=== PATIENT | male | born 1955 | race African-American/Black ===

== ENCOUNTER 2023-04-12 11:07 | Emergency (ER) | payer OTHER ==
[2023-04-12] MEDS ORDERED: NITROGLYCERIN/D5W 50 MG/250 ML BTL IV ONE (11:33)
[2023-04-12] MEDS ORDERED: FUROSEMIDE 100 MG/10 ML VIAL IV ONE (11:33)
[2023-04-12 11:37] LABS: Absolute Lymphocytes (CBC) 1.8 K/uL (0.7-4.9); Hematocrit 33.5 % (39.6-49.0); Lymphocytes % 16.7 % (15.3-44.8); MCV 88.8 fL (80-100); MPV 7.2 fL (7.6-11.3); Platelets 404 thou/uL (152-406); RBC Red Blood Cell Count 3.77 M/uL (4.33-5.43)
[2023-04-12 11:43] LABS: Protime INR 1.13
[2023-04-12 11:53] LABS: Arterial Blood Carboxyhemoglob 1.2 % (0-1.5); Blood Gas Oxyhemoglobin 48.2 % (94-97); Blood O2 Saturation 49.6 % (92-98.5)
[2023-04-12 11:57] LABS: Specific Gravity > 1.030 (1.005-1.030); Transitional Epithelial <5 /HPF (None Seen); Urine Bacteria <20 /HPF (<20); Urine Bilirubin NEGATIVE (Negative); Urine Blood 2+ (Negative); Urine Clarity Turbid (Clear); Urine Color Yellow (Yellow); Urine Glucose 4+ (Negative); Urine Mucus Slight /HPF (None Seen); Urine Protein 3+ (Negative); Urine RBC >50 /HPF (None Seen); Urine Urobilinogen 1+ (Normal)
[2023-04-12 11:57] LABS: Albumin 2.6 g/dL (3.4-5.0); Bilirubin Direct 0.1 mg/dL (0-0.2); Bilirubin Indirect, Calculated 0.3 mg/dL (0.2-0.8); Bilirubin Total 0.4 mg/dL (0.2-1.0); Potassium 3.3 mEq/L (3.5-5.1); Protein, Total 8.8 g/dL (6.4-8.2); Troponin High Sensitivity 1869.6 pg/mL (<58.9)
--- NOTE | 2023-04-12 12:21 | RAD REPORT ---
EXAM DESCRIPTION: Toshia Single View04/12/2023 11:54 am CLINICAL HISTORY: DYSPNEA COMPARISON: No comparisons TECHNIQUE: Portable AP view of the chest. FINDINGS: Pronounced interstitial prominence and central hazy opacities. Suspected small bilateral p leural effusions. No pneumothorax. The cardiomediastinal contours are unremarkable. IMPRESSION: Findings suggestive of central pulmonary edema as above.
--- NOTE | 2023-04-12 12:30 | ER ---
Nurse's Notes [facility] Name: Germaine Rm Age: 67 yrs Sex: Male : 1955 Arrival Date: 04/12/2023 Time: 11:07 Bed 8 Private MD: Diagnosis: Hypercarbic hypoxemic respiratory failure;Congestive heart failure exacerbation;NSTEMI;Hyperglycemia Presentation: 04/12 11:12 Chief complaint: EMS states: they were called by the [place] clinic for a patient ap3 complaining of SOB and was diaphoretic. EMS reports when they arrived, patient was 63% on a nasal canula. EMS placed patient on a nonrebreather then on CPAP. EMS started a 20g IV in his right AC. EMS administered NS and a 2' nitro paste to the left chest wall. Coronavirus screen: Client presents with at least one sign or symptom that may indicate coronavirus-19. Ebola Screen: No symptoms or risks identified at this time. Initial Sepsis Screen: Does the patient meet any 2 criteria? RR > 20 per min. HR > 90 bpm. Yes Does the patient have a suspected source of infection? Yes: Other: Shortness of breath If YES to both, name of provider notified: Brendon Elkins MD Risk Assessment: Do you want to hurt yourself or someone else? Patient reports no desire to harm self or others. Onset of symptoms is unknown. Care prior to arrival: Medication(s) given: Normal saline infusion, Nitroglycerin, IV initiated. 20 GA, in the right antecubital area. 11:12 Method Of Arrival: EMS: [facility] ap3 11:12 Acuity: EMILY 2 ap3 Triage Assessment: 11:15 General: Appears distressed, Behavior is calm. Pain: Unable to use pain scale. ap3 Cardiovascular:. Respiratory: Reports shortness of breath Airway is patent Respiratory effort is even, labored, Respiratory pattern is tachypnea Onset: The symptoms/episode began/occurred gradually. Derm: Skin is diaphoretic. Historical: - Allergies: 11:15 No Known Allergies; nj1 - Immunization history:: Adult Immunizations unknown. - Social history:: Smoking status: unknown. Screenin:16 Abuse screen: Denies threats or abuse. Nutritional screening: No deficits noted. ap3 Tuberculosis screening: No symptoms or risk factors identified. 11:30 [facility] ED Fall Risk Assessment (Adult) History of falling in the last 3 months, nj1 including since admission No falls in past 3 months (0 pts) Confusion or Disorientation No (0 pts) Intoxicated or Sedated Yes (3 pts) Impaired Gait Yes (1 pt) Mobility Assist Device Used No (0 pt) Altered Elimination Yes (1 pt) Score/Fall Risk Level 3 or more points = High Risk Oriented to surroundings, Maintained a safe environment, Educated pt \T\ family on fall prevention, incl call for assistance when getting out of bed, Hourly rounding (assess needs \T\ fall precautionary measures) done, Remained w/in arm's length of patient and in sight while toileting, Utilized family, sitter, or virtual seat pack inspector as indicated. Assessment: 11:15 General: Appears distressed, uncomfortable, obese. nj1 11:15 Neuro: Level of Consciousness is awake, alert, obeys commands, Oriented to Unable to nj1 assess at this time. Cardiovascular: Rhythm is sinus tachycardia. Respiratory: Airway is patent Respiratory effort is labored, Respiratory pattern is tachypnea Patient placed on BiPAP: Inspiratory Pressure: 20 Expiratory (EPAP) Pressure: 6 FiO2%: 100 Breath sounds with crackles in right upper lobe, left upper lobe, right middle lobe, left lower lobe and right lower lobe. Derm: Skin is diaphoretic. 13:00 Respiratory: Patient placed on BiPAP: Inspiratory Pressure: 16 Expiratory (EPAP) nj1 Pressure: 6 FiO2%: 50. 13:00 Reassessment: Patient appears in no apparent distress at this time. Patient and/or nj1 family updated on plan of care and expected duration. Pain level reassessed. Patient denies pain at this time. 13:00 Cardiovascular: Patient's skin is warm and dry. Rhythm is regular. Respiratory: Airway nj1 is patent Respiratory effort is even, unlabored, Respiratory pattern is regular, BiPAP in place. 15:00 Reassessment: No changes from previously documented assessment. nj1 17:00 Reassessment: No changes from previously documented assessment. nj1 Vital Signs: 11:12 BP 203 / 107; Pulse 113; Resp 31; Pulse Ox 94% on BiPAP; ap3 11:38 BP 174 / 95; Pulse 108; Resp 23; Pulse Ox 99% on BiPAP; MAP 114 mmHg; nj1 11:46 BP 147 / 81; Pulse 109; Resp 31; Pulse Ox 98% on BiPAP; MAP 99 mmHg; nj1 11:52 BP 167 / 98; Pulse 111; Pulse Ox 100% on BiPAP; MAP 117 mmHg; ap3 11:59 BP 157 / 96; Pulse 109; Resp 26; Pulse Ox 100% on BiPAP; MAP 112 mmHg; nj1 12:08 BP 158 / 91; Pulse 108; Resp 28; Pulse Ox 100% on BiPAP; MAP 109 mmHg; ap3 12:13 Weight 122.47 kg (M); nj1 12:42 BP 95 / 64; Pulse 110; Resp 22; Pulse Ox 100% on BiPAP; MAP 76 mmHg; nj1 13:04 BP 99 / 63; Pulse 106; Resp 22; Pulse Ox 99% on BiPAP; MAP 70 mmHg; nj1 13:22 BP 173 / 89; Pulse 99; Resp 22; Pulse Ox 97% on BiPAP; MAP 112 mmHg; nj1 13:31 BP 152 / 83; Pulse 94; Resp 16; Pulse Ox 96% ; MAP 101 mmHg; nj1 13:47 BP 170 / 89; Pulse 99; Resp 24; Pulse Ox 95% on BiPAP; MAP 111 mmHg; nj1 14:17 BP 149 / 88; Pulse 89; Resp 16; Pulse Ox 96% on BiPAP; MAP 107 mmHg; nj1 14:23 BP 134 / 89; Pulse 88; Resp 17; Pulse Ox 95% on BiPAP; MAP 104 mmHg; cm10 14:49 BP 120 / 91; Pulse 80; Resp 18; Pulse Ox 96% on BiPAP; MAP 101 mmHg; cm10 14:57 BP 130 / 69; Pulse 94; Resp 15; Pulse Ox 97% on BiPAP; MAP 86 mmHg; nj1 15:11 BP 138 / 85; Pulse 78; Resp 15; Pulse Ox 98% ; MAP 98 mmHg; nj1 16:45 BP 169 / 98; Pulse 102; Resp 24; Pulse Ox 98% on BiPAP; MAP 118 mmHg; nj1 ED Course: 11:12 Patient arrived in ED. ap3 11:14 Brendon Elkins MD is Attending Physician. rt 11:15 Triage completed. ap3 11:17 Arm band placed on left wrist. ap3 11:17 Patient has correct armband on for positive identification. Bed in low position. Call ap3 light in reach. Side rails up X2. optometrist owner on. Pulse ox on. NIBP on. 11:20 Inserted saline lock: 20 gauge in left antecubital area, using aseptic technique. Blood nj1 collected. 11:30 Maintain EMS IV. Dressing intact. Good blood return noted. Site clean \T\ dry. Gauge \T\ nj 1 site: 20g RAC. 11:30 Green cath inserted, using sterile technique, 18 Fr., by ma, balloon inflated, to nj1 gravity drainage, urine specimen collected. returned clear yellow urine. Patient tolerated well. 11:50 Selene Durham, RN is Primary Nurse. nj1 11:56 XRAY Chest (1 view) In Process Unspecified. EDMS 12:00 Notified ED physician of a critical lab result(s). Troponin 1869, Glucose 486. nj1 12:[address] [facility], faxed chart to ER as requested by Maria Eugenia in the transfer center. 12:55 Inserted saline lock: 20 gauge in left upper arm, using aseptic technique. ,using nj1 aseptic technique. Ultrasound guided. Catheter tip well visualized within vasculature during placement. 16:25 pt accepted in tranfer to [facility] by dr Shoemaker, admin approval given by Maninder Cutler,pt going to ER. 17:25 ems to transport pt to [facility]. 18:27 No provider procedures requiring assistance completed. Patient transferred, IV remains nj1 in place. Administered Medications: 11:34 Drug: Furosemide IVP 80 mg IVP once; give over 2 minutes Route: IVP; Site: right nj1 antecubital; 13:04 Follow up: Response: No adverse reaction nj1 11:38 Drug: Nitro Drip 5 mcg/min - (Nitroglycerin IV 50 mg, D5W IV 250 ml) IV at 5 mcg/min nj1 See Administration Instructions; Recommended max rate 400 mcg/min; Titrate 5 to 20 mcg/min as often as every 5 minutes to achieve goal; Route: IV; Rate: 5 mcg/min; Site: right antecubital; 11:53 Follow up: Rate change 10 mcg/min nj1 11:59 Follow up: Rate change 15 mcg/min nj1 12:15 Follow up: Rate change 20 mcg/min nj1 12:44 Follow up: Rate change 10 mcg/min nj1 12:54 Follow up: Rate change 5 mcg/min nj1 13:04 Follow up: Rate change mcg/min nj1 13:22 Follow up: Rate change 5 mcg/min nj1 13:47 Follow up: Rate change 10 mcg/min nj1 16:45 Follow up: Rate change 15 mcg/min nj1 12:28 Drug: Insulin Regular Human IVP 10 units IVP once {Co-Signature: myah (Stephie Haney RN).} Route: IVP; Site: left antecubital; 13:27 Follow up: Response: Blood sugar is lowered nj1 12:55 Drug: Heparin (CT-Bolus No thrombolytic) - HEParin IVP 60 units/kg IVP once; Max 5000 nj1 units {Co-Signature: myah (Stephie Haney RN).} Route: IVP; Site: left upper arm; 13:27 Follow up: Response: No adverse reaction nj1 12:56 Drug: Heparin (CT Drip) 12 units/kg/[place] - ([place] [address] units, D5W IV 500 ml) IV at nj1 calculated rate Per protocol; Max initial rate 1000 units/hr {Co-Signature: myah (Stephie Haney RN).} Route: IV; Rate: calculated rate; Site: left upper arm; 18:29 Follow up: IV Status: Infusion continued upon transfer; IV Intake: 110ml nj1 Intake: 18:29 IV: 110ml; Total: 110ml. nj1 Output: 13:04 Urine: 450ml (Green); Total: 450ml. nj1 15:11 Urine: 450ml (Green); Total: 900ml. nj1 Outcome: 12:30 ER care complete, transfer ordered by MD. rt 18:27 Patient left the ED. iw 18:27 Transferred by ground EMS to [facility] Transfer form completed. nj1 Note: Report called earlier by charge nurse Stephie to DC ED RN, see paperwork documentation 18:27 Condition: stable 18:27 Instructed on the need for transfer, Signatures: Dispatcher [employer] Laurie Casarez Irene, RN Nubia Henning RN RN ap3 Brendon Elkins MD MD rt Selene Durham RN RN nj1 Nery Rayo RN RN cm10 Stephie Haney RN iw Corrections: (The following items were deleted from the chart) 11:52 11:41 BP 174 / 95; Pulse 108bpm; Resp 23bpm; Pulse Ox 99% BiPAP; ap3 nj1 11:52 11:46 BP 147 / 81; Pulse 109bpm; Resp 31bpm; Pulse Ox 98% BiPAP; ap3 nj1 11:56 11:41 BP 174 / 95; Pulse 108bpm; Resp 23bpm; Pulse Ox 99% BiPAP; MAP 114 mmHg; nj1 nj1 11:56 11:30 Inserted saline lock: 20 gauge in left antecubital area, using aseptic technique. nj1 Blood collected. [facility] 12:12 12:06 General: Appears distressed, [place] [id number] 12:15 12:09 Rate change 15 mcg/min [place] [id number] 13:35 12:10 Reassessment: No changes from previously documented assessment. [place] [id number]
--- NOTE | 2023-04-12 12:30 | EDPHYS ---
Physician Documentation [facility] Name: Germaine Rm Age: 67 yrs Sex: Male : 1955 Arrival Date: 04/12/2023 Time: 11:07 Bed 8 Private MD: ED Physician Brendon Elkins HPI: 04/12 11:19 This 67 yrs old Black Male presents to ER via EMS with complaints of Shortness of rt breath. 11:19 History limited due to patient with significant dyspnea. Patient presents to the ED rt from [place] clinic for dyspnea over the past 3 days. He reported chest pain previously, none currently. The symptoms have been progressively worsening. Room air saturations reportedly 60%, correcting to about 70, nasal cannula, correcting to 100% on CPAP. Patient was noted to be hypertensive, Nitropaste was started. No further history could be obtained, symptoms are severe in severity, no other aggravating or alleviating factors.. Historical: - Allergies: 11:15 No Known Allergies; nj1 - Immunization history:: Adult Immunizations unknown. - Social history:: Smoking status: unknown. ROS: 11:20 Constitutional: Negative for fever, chills, and weight loss, Abdomen/GI: Negative for rt abdominal pain, nausea, vomiting, diarrhea, and constipation, MS/Extremity: Negative for injury and deformity, Neuro: Negative for headache, weakness, numbness, tingling, and seizure, Psych: Negative for depression, anxiety, suicide ideation, homicidal ideation, and hallucinations, 11:20 Cardiovascular: Positive for chest pain, edema, 11:20 Respiratory: Positive for cough, shortness of breath, 11:20 Skin: Positive for diaphoresis, Negative for rash, Exam: 11:20 Constitutional: This is a well developed, well nourished patient who is awake, alert, rt and in no acute distress. Head/Face: Normocephalic, atraumatic. Chest/axilla: Normal chest wall appearance and motion. Nontender with no deformity. No lesions are appreciated. Cardiovascular: Regular rate and rhythm with a normal S1 and S2. No gallops, murmurs, or rubs. Normal PMI, no JVD. No pulse deficits. MS/ Extremity: Pulses equal, no cyanosis. Neurovascular intact. Full, normal range of motion. Neuro: Awake and alert, GCS 15, oriented to person, place, time, and situation. Cranial nerves II-XII grossly intact. Motor strength 5/5 in all extremities. Sensory grossly intact. Cerebellar exam normal. Normal gait. Psych: Awake, alert, with orientation to person, place and time. Behavior, mood, and affect are within normal limits. 11:20 Constitutional: The patient appears Diaphoretic, in obvious distress 11:20 Respiratory: Shallow respirations, tachypneic, crackles heard on all lung bryan, 11:20 Musculoskeletal/extremity: 2+ lower extremity edema. 11:20 Skin: Cool, diaphoretic. 11:40 ECG was reviewed by the Attending Physician. rt Vital Signs: 11:12 BP 203 / 107; Pulse 113; Resp 31; Pulse Ox 94% on BiPAP; ap3 11:38 BP 174 / 95; Pulse 108; Resp 23; Pulse Ox 99% on BiPAP; MAP 114 mmHg; nj1 11:46 BP 147 / 81; Pulse 109; Resp 31; Pulse Ox 98% on BiPAP; MAP 99 mmHg; nj1 11:52 BP 167 / 98; Pulse 111; Pulse Ox 100% on BiPAP; MAP 117 mmHg; ap3 11:59 BP 157 / 96; Pulse 109; Resp 26; Pulse Ox 100% on BiPAP; MAP 112 mmHg; nj1 12:08 BP 158 / 91; Pulse 108; Resp 28; Pulse Ox 100% on BiPAP; MAP 109 mmHg; ap3 12:13 Weight 122.47 kg (M); nj1 12:42 BP 95 / 64; Pulse 110; Resp 22; Pulse Ox 100% on BiPAP; MAP 76 mmHg; nj1 13:04 BP 99 / 63; Pulse 106; Resp 22; Pulse Ox 99% on BiPAP; MAP 70 mmHg; nj1 13:22 BP 173 / 89; Pulse 99; Resp 22; Pulse Ox 97% on BiPAP; MAP 112 mmHg; nj1 13:31 BP 152 / 83; Pulse 94; Resp 16; Pulse Ox 96% ; MAP 101 mmHg; nj1 13:47 BP 170 / 89; Pulse 99; Resp 24; Pulse Ox 95% on BiPAP; MAP 111 mmHg; nj1 14:17 BP 149 / 88; Pulse 89; Resp 16; Pulse Ox 96% on BiPAP; MAP 107 mmHg; nj1 14:23 BP 134 / 89; Pulse 88; Resp 17; Pulse Ox 95% on BiPAP; MAP 104 mmHg; cm10 14:49 BP 120 / 91; Pulse 80; Resp 18; Pulse Ox 96% on BiPAP; MAP 101 mmHg; cm10 14:57 BP 130 / 69; Pulse 94; Resp 15; Pulse Ox 97% on BiPAP; MAP 86 mmHg; nj1 15:11 BP 138 / 85; Pulse 78; Resp 15; Pulse Ox 98% ; MAP 98 mmHg; nj1 16:45 BP 169 / 98; Pulse 102; Resp 24; Pulse Ox 98% on BiPAP; MAP 118 mmHg; nj1 MDM: 11:14 Patient medically screened. rt 20:51 Differential diagnosis: Pulmonary edema, hypertensive emergency, NSTEMI. Data reviewed: rt vital signs, nurses notes, lab test result(s), EKG, radiologic studies. Consideration of Admission/Observation Escalation of care including admission/observation considered. Management of patient was discussed with the following: Oil Burner Installer: Discussed with egg caser who recommends transfer. I considered the following discharge prescriptions or medication management in the emergency department Medications were administered in the Emergency Department. See MAR. Independent interpretation of the following test(s) in the Emergency Department X-Ray: My interpretation is Significant pulmonary edema seen on interpretation of x-ray images. Test considered but Not performed: CT: Low suspicion for PE, CT angiogram not indicated. Care significantly affected by the following chronic conditions: Hypertension, Congestive Heart Failure. Response to treatment: the patient's symptoms have markedly improved after treatment. 04/12 11:15 Order name: Basic Metabolic Panel; Complete Time: 12: rt 04/12 11:15 Order name: CBC with Diff; Complete Time: 12: rt 04/12 11:15 Order name: LFT's; Complete Time: 12: rt 04/12 11:15 Order name: Magnesium; Complete Time: 12:01 rt 04/12 11:15 Order name: NT PRO-BNP; Complete Time: 12:01 rt 04/12 11:15 Order name: PT-INR; Complete Time: 12: rt 04/12 11:15 Order name: Troponin HS; Complete Time: 12: rt 04/12 11:15 Order name: ABG; Complete Time: 12:01 rt 04/12 11:15 Order name: UAM; Complete Time: 12: rt 04/12 12:09 Order name: Ptt, Activated; Complete Time: 12:28 rt 04/12 13:28 Order name: Glucose, Ancillary Testing; Complete Time: 13:48 EDMS 04/12 11:15 Order name: XRAY Chest (1 view); Complete Time: 12:28 rt 04/12 11:15 Order name: BIPAP rt 04/12 11:15 Order name: EKG; Complete Time: 11:16 rt 04/12 11:15 Order name: Cardiac monitoring; Complete Time: 11:17 rt 04/12 11:15 Order name: EKG - Nurse/Tech; Complete Time: 11:54 rt 04/12 11:15 Order name: IV Saline Lock; Complete Time: 11:54 rt 04/12 11:15 Order name: Labs collected and sent; Complete Time: :54 rt 04/12 11:15 Order name: O2 Per Protocol; Complete Time: 11: rt 04/12 11:15 Order name: O2 Sat Monitoring; Complete Time: 11:17 rt 04/12 11:15 Order name: Green; Complete Time: 11:54 rt 04/12 11:16 Order name: Misc. Order: goal map is 100; Complete Time: 11:54 rt EC:40 Rate is 126 beats/min. Rhythm is regular, Sinus tachycardia with Occasional PVCs. QRS rt [place] is Normal. [place] interval is normal. QRS interval is normal. QT interval is normal. No Q waves. Clinical impression: NSR w/ Non-specific ST/T Changes. Administered Medications: 11:34 Drug: Furosemide IVP 80 mg IVP once; give over 2 minutes Route: IVP; Site: right banner antecubital; 13:04 Follow up: Response: No adverse reaction nj1 11:38 Drug: Nitro Drip 5 mcg/min - (Nitroglycerin IV 50 mg, D5W IV 250 ml) IV at 5 mcg/min nj1 See Administration Instructions; Recommended max rate 400 mcg/min; Titrate 5 to 20 mcg/min as often as every 5 minutes to achieve goal; Route: IV; Rate: 5 mcg/min; Site: right antecubital; 11:53 Follow up: Rate change 10 mcg/min nj1 11:59 Follow up: Rate change 15 mcg/min nj1 12:15 Follow up: Rate change 20 mcg/min nj1 12:44 Follow up: Rate change 10 mcg/min nj1 12:54 Follow up: Rate change 5 mcg/min nj1 13:04 Follow up: Rate change mcg/min nj1 13:22 Follow up: Rate change 5 mcg/min nj1 13:47 Follow up: Rate change 10 mcg/min nj1 16:45 Follow up: Rate change 15 mcg/min nj1 12:28 Drug: Insulin Regular Human IVP 10 units IVP once {Co-Signature: myah (Stephie Haney RN).} Route: IVP; Site: left antecubital; 13:27 Follow up: Response: Blood sugar is lowered nj1 12:55 Drug: Heparin (ND-Bolus No thrombolytic) - HEParin IVP 60 units/kg IVP once; Max 5000 nj1 units {Co-Signature: myah (Stephie Haney RN).} Route: IVP; Site: left upper arm; 13:27 Follow up: Response: No adverse reaction nj1 12:56 Drug: Heparin (ND Drip) 12 units/kg/[place] - ([place] [address] units, D5W IV 500 ml) IV at nj1 calculated rate Per protocol; Max initial rate 1000 units/hr {Co-Signature: myah (Stephie Haney RN).} Route: IV; Rate: calculated rate; Site: left upper arm; 18:29 Follow up: IV Status: Infusion continued upon transfer; IV Intake: 110ml nj1 Disposition: 20:51 Critical Care:. rt Disposition Summary: 04/12/23 12:30 Transfer Ordered Notes: Transfer Location: System rt Reason: Higher level of care rt Condition: Critical rt Problem: an acute exacerbation rt Symptoms: have improved rt Accepting Physician: (04/12/23 18:27) myah Diagnosis - Hypercarbic hypoxemic respiratory failure rt - Congestive heart failure exacerbation rt - NSTEMI rt - Hyperglycemia rt Forms: - Medication Reconciliation Form rt - SBAR form rt Critical care time excluding procedures: 20:51 Critical care time: Bedside Care: 40 minutes, Consultation: 10 minutes. Total time: 50 rt minutes Signatures: Dispatcher [employer] EDStephie Mercer RN RN iw Brendon Elkins MD MD rt Selene Durham RN RN nj1 Stephie Haney RN iw Corrections: (The following items were deleted from the chart) 18:27 12:30 Dr. rt iw
[2023-04-12] MEDS ORDERED: HEPARIN 5000 UNIT/ML 1 ML VIAL ONE (12:31)
[2023-04-12] MEDS ORDERED: HEPARIN/D5W 25,000 UNIT/500 ML BAG IV ONE (12:32)
[2023-04-12] MEDS ORDERED: INSULIN REGULAR (HUMAN) 100 UNIT/ML ONE (12:32)
[2023-04-12 19:18] VITALS: BP 169/98; O2SAT 98
[2023-04-13 07:05] LABS: Arterial Blood Carboxyhemoglob 1.5 % (0-1.5); Blood Gas Oxyhemoglobin 94.1 % (94-97); Blood O2 Saturation 97.1 % (92-98.5)
--- NOTE | 2023-04-17 17:01 | EKG ---
Test Date: 2023-04-12 Test Time: 11:15:12 Lithopone Charger: BARBARA MEASUREMENT RESULTS: Intervals: Rate: 126 AL: 156 QRSD: 94 QT: 340 QTc: 492 [place]: P: 56 AL: 156 QRS: 52 T: 59 INTERPRETIVE STATEMENTS: Sinus tachycardia with occasional premature ventricular complexes Nonspecific ST and T wave abnormality Abnormal ECG No previous ECG available for comparison Electronically Signed On 04-17-23 16:54:27 TRAVEL RN OR by Mikhail uLnsford
== END 2023-04-12 18:27 ==
LOC: ER 11:07
DX: J96.92 Respiratory failure, unspecified with hypercapnia (principal); I21.4 Non-ST elevation (NSTEMI) myocardial infarction; I50.9 Heart failure, unspecified; R73.9 Hyperglycemia, unspecified; I10 Essential (primary) hypertension
CPT/HCPCS: 93005; 85025; 81001; 80048; 36415; 83735; 85610; 82947; 80076; 85730; 84484; 83880; 71045; 82805; 51702; 99285; 94660 ×2; J1815; J1644